=== PATIENT | male | born 1955 | race Caucasian/White ===

== ENCOUNTER 2021-03-24 22:11 | Emergency (ER) | payer SELFPAY ==
[2021-03-24 22:13] VITALS: BP 157/93; PULSE 82; RESP 20; TEMP 36.7; O2SAT 97
[2021-03-24 22:54] LABS: Basophils Percent Auto 0.2 % (0.2-1.2); Eosinophils Absolute Auto 0.1 K/mm3 (0-0.3); Hematocrit 50.3 % (42.0-52.0); Hemoglobin 17.7 g/dL (14.0-18.0); Immature Granulocyte Percent A 0.8 % (0-0.5); Lymphocytes Percent Auto 14.4 % (18.3-44.2); Mean Corpuscular HGB Conc 35.2 g/dl (32-36); Mean Corpuscular Hemoglobin 32.2 pg (26-34); Mean Corpuscular Volume 91.6 fl (80-100); Mean Platelet Volume 10.1 fl (7.4-10.4); Monocytes Absolute Auto 1.2 K/mm3 (0.1-0.6); Monocytes Percent Auto 8.8 % (2.6-8.5); Neutrophils Absolute Auto 9.9 K/mm3 (1.3-6.7); Neutrophils Percent Auto 74.8 % (45.5-73.1); Platelet Count Result 261 k/mm3 (150-375); Red Blood Count 5.49 M/mm3 (4.6-6.20); Red Cell Distribution Width 13.2 % (11.5-14.5); White Blood Count 13.2 K/mm3 (4.5-10.0)
--- NOTE | 2021-03-24 23:10 | PC.NURSE ---
Report received from MAXIM Guzmán. Assumed care of patient at this time.
--- NOTE | 2021-03-24 23:10 | PC.NURSE ---
Sitter placed at bedside due to patient attempting to climb out of bed.
--- NOTE | 2021-03-24 23:32 | PC.NURSE ---
Patient taken to CT via stretcher with development technical lead.
--- NOTE | 2021-03-24 23:37 | PC.NURSE ---
When attempting to take patient to CT via stretcher, patient attempting to get out of bed, noncooperative and refusing to sit still. ERP notified.
[2021-03-24 23:42] LABS: Alanine Aminotransferase 32 U/L (4-50); Albumin Level 4.5 g/dL (3.5-5.1); Alkaline Phosphatase 77 U/L (38-126); Anion Gap 14 mmol/L (8-16); Aspartate Amino Transferase 43 U/L (17-59); Bilirubin,Total 0.6 mg/dL (0.2-1.3); Blood Urea Nitrogen 9 mg/dL (9-20); Calcium 9.1 mg/dL (8.4-10.2); Carbon Dioxide 23 mmol/L (22-30); Chloride 108 mmol/L (98-107); Estimated CRCL calculation 86 ml/min; Estimated Glomerular Filt Rate > 60; Glucose 119 mg/dL (65-110); Potassium 3.4 mmol/L (3.4-5.0); Sodium 145 mmol/L (137-145)
--- NOTE | 2021-03-24 23:54 | PC.NURSE ---
pt adamantly refusing CT. EDP made aware.
[2021-03-25 00:01] LABS: Ethanol 345 mg/dL (<10)
[2021-03-25] MEDS: NICOTINE (*PBKC) 21 MG PATCH 1 PATCH TRANSDERM (00:17)
--- NOTE | 2021-03-25 00:19 | ED.GENADULT ---
HPI - General Adult General Chief complaint: Head Injury <Gregory Collins MD - Last Filed: 03/25/21 03:58> Stated complaint: head injury, +ETOH <Gregory Collins MD - Last Filed: 03/25/21 03:58> Time Seen by Provider: 03/24/21 22:33 <Gregory Collins MD - Last Filed: 03/25/21 03:58> History of Present Illness HPI narrative: Patient is a 65-year-old gentleman presents the emergency department with chief complaint of head injury. The patient was detained by local law enforcement for intoxication and fell striking his head. The patient was brought to the emergency department for medical screening exam. The patient currently has no complaints but he is obviously intoxicated and is unsteady on his feet. While obtaining history the patient attempted to get up out of the stretcher and started to fall but was able to be caught prior to the fall <Gregory Collins MD - Last Filed: 03/25/21 03:58> Related Data Allergies/adverse reactions: Allergies Allergy/AdvReac Type Severity Reaction Status Date / Time No Known Allergies Allergy Verified 03/24/21 22:53 <Gregory Collins MD - Last Filed: 03/25/21 03:58> Review of Systems Review of Systems: A 10 system review of systems was completed on the patient and is negative except for what is stated in the HPI. Nursing and ancillary documentation was reviewed. <Gregory Collins MD - Last Filed: 03/25/21 03:58> PMFSH Comments Social history the patient smokes 2 packs a day <Gregory Collins MD - Last Filed: 03/25/21 03:58> Exam Narrative: GENERAL: Well-appearing, well-nourished, and in no acute distress. HEAD: Normocephalic, small half centimeter laceration in the left mandaeism area. EYES: PERRLA and EOMI. ENT: Nares clear, no rhinorrhea or epistaxis. Mucous membranes moist. NECK: Supple. CHEST: Clear to auscultation. No respiratory distress. HEART: Regular rate and rhythm. No murmur heard. Normal peripheral pulses. ABDOMEN: Soft, nontender, nondistended, normal active bowel sounds. EXTREMITIES: Normal range of motion. No edema. SKIN: Warm, dry, no rash. NEURO: No focal deficits. Alert intoxicated. PSYCH: Normal mood and affect. <Gregory Collins MD - Last Filed: 03/25/21 03:58> Course Reevaluation(s) Reevaluation #1: Patient appears clinically sober with steady gait now. He refused CT scan of head and he continues to decline any additional treatment and test. He is oriented x 3. <Isa Ontiveros MD - Last Filed: 03/25/21 18:17> Date: 03/25/21 <Isa Ontiveros MD - Last Filed: 03/25/21 18:17> Time: 08:26 <Isa Ontiveros MD - Last Filed: 03/25/21 18:17> Reevaluation #2: PD brought patient's belongings to ER. Patient's friend is coming to pick him up. <Isa Ontvieros MD - Last Filed: 03/25/21 18:17> Date: 03/25/21 <Isa Ontiveros MD - Last Filed: 03/25/21 18:17> Time: 09:07 <Isa Ontiveros MD - Last Filed: 03/25/21 18:17> Vital Signs Vital signs: Vital Signs Temperature 98.0 F 03/24/21 22:13 Pulse Rate 82 03/24/21 22:13 Respiratory Rate 20 03/24/21 22:13 Blood Pressure 157/93 H 03/24/21 22:13 Pulse Oximetry 97 03/24/21 22:13 Temperature 98.0 F 03/24/21 22:13 Pulse Rate 97 03/25/21 08:50 Respiratory Rate 16 03/25/21 08:50 Blood Pressure 173/130 H 03/25/21 08:50 Pulse Oximetry 99 03/25/21 03:36 <Gregory Collins MD - Last Filed: 03/25/21 03:58> Vital Signs Temperature 98.0 F 03/24/21 22:13 Pulse Rate 82 03/24/21 22:13 Respiratory Rate 20 03/24/21 22:13 Blood Pressure 157/93 H 03/24/21 22:13 Pulse Oximetry 97 03/24/21 22:13 Temperature 98.0 F 03/24/21 22:13 Pulse Rate 97 03/25/21 08:50 Respiratory Rate 16 03/25/21 08:50 Blood Pressure 173/130 H 03/25/21 08:50 Pulse Oximetry 99 03/25/21 03:36 <Isa Ontiveros MD - L
[2021-03-25 02:37] VITALS: PULSE 81; RESP 17; O2SAT 96
[2021-03-25 03:36] VITALS: BP 132/97; PULSE 89; RESP 17; O2SAT 99
[2021-03-25] MEDS: ACETAMINOPHEN 500 MG TABLET 1000 MG PO (04:38)
--- NOTE | 2021-03-25 08:00 | PC.NURSE ---
pt wanting to leave. spoke with dr mullen. pt refusing to have additional etoh level drawn.
--- NOTE | 2021-03-25 08:34 | PC.NURSE ---
[place] [facility] contacted. will bring pt belongings to ed. pt aware of this and will stay till belongings arrive.
[2021-03-25 08:50] VITALS: BP 173/130; PULSE 97; RESP 16
== END 2021-03-25 09:16 | disposition home or self-care (01) ==
PROVIDERS: Emergency Medicine; Emergency Provider General Practice
DX: S09.90XA Unspecified injury of head, initial encounter (principal); F10.120 Alcohol abuse with intoxication, uncomplicated; Y90.8 Blood alcohol level of 240 mg/100 ml or more; F17.210 Nicotine dependence, cigarettes, uncomplicated
CPT/HCPCS: 36415; 80053; 80307; 85025; 99283; A9270